=== PATIENT | female | born 1990 | race Caucasian/White ===

== ENCOUNTER 2017-04-10 16:37 | Emergency (ER) | payer MEDICAID ==
[~2017-04-10] VITALS: Ht 167.6 cm; Wt 81.6 kg
[~2017-04-10 16:37] MED LIST: IBUPROFEN600 MG ORAL; NKM
[2017-04-10] MEDS ORDERED: AUGMENTIN 875-1 EAC1 ORAL (17:14)
[2017-04-10] MEDS ORDERED: IBUPROFEN800 MG ORAL (17:15)
[2017-04-10 17:16] VITALS: BP 137/92
[2017-04-10 17:24] VITALS: BP 137/92
--- NOTE | 2017-04-10 17:32 | Emergency Room Report ---
History of Present Illness General Chief Complaint: Sore Throat Source: Patient Present Illness HPI [id number] presents with one day of "white stuff on my tonsills." First noticed this morning. Only minor pain. Denies fever/chills, URI symptoms, cough, rhinorrhea. Allergies: Coded Allergies: No Known Allergies (Unverified , 08/05/16) Patient History Past Medical History: none Past Surgical History: none Pertinent Family History: none Social History: Denies: alcohol use, drug use, smoking Last Menstrual Period: 02/28/17 Now: No Immunizations: UTD Reviewed Nursing Documentation: PMH: Agreed, PSxH: Agreed Nursing Documentation-PMH Past Medical History: No Stated History Review of Systems All Other Systems: negative except mentioned in HPI Physical Exam Vital Signs Date Time Temp Pulse Resp B/P Pulse Ox O2 Delivery O2 Flow Rate FiO2 04/10/17 16:40 99.3 79 18 137/92 100 Room Air Sp02 EP Interpretation: reviewed, normal General Appearance: normal inspection, well appearing, no apparent distress, alert, GCS 15, non-toxic Head: normocephalic, atraumatic Eyes: bilateral eye EOMI, bilateral eye PERRL ENT: normal ENT inspection, hearing grossly normal, no angioedema, normal voice , pharyngeal erythema, tonsillar exudate Neck: normal inspection, full range of motion, supple, no bony tend Respiratory: normal inspection, lungs clear, normal breath sounds, no respiratory distress, no retraction, no wheezing Cardiovascular #1: regular rate, rhythm, no edema Gastrointestinal: normal inspection, normal bowel sounds, non tender, soft, no guarding, no hernia Genitourinary: no CVA tenderness Musculoskeletal: normal inspection, back normal, normal range of motion, Shi' s Sign negative Neurologic: normal inspection, alert, oriented x3, responsive, 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, motor strength/tone normal, speech normal Psychiatric: normal inspection, judgement/insight normal, mood/affect normal Skin: normal inspection, normal color, no rash Medical Decision Making Diagnostic Impression: Primary Impression: Sore throat ER Course Pharyngitis c/w sore strep - Exudates, erythema - Decadron given in ED Rx Augemtnin, Motrin PMD followup Last Vital Signs Date Time Temp Pulse Resp B/P Pulse Ox O2 Delivery O2 Flow Rate FiO2 04/10/17 17:24 99.3 78 18 137/92 100 Room Air Status: improved Disposition: HOME, SELF-CARE Condition: Improved Scripts Ibuprofen* (MOTRIN*) 800 Mg Tablet 800 MG ORAL THREE TIMES A DAY for 7 Days, #30 TAB 0 Refills Prov: ANA BECKMAN M.D. 04/10/17 Amoxicillin/Potassium Clav 875-125* (AUGMENTIN 875-125 TABLET*) 1 Each Tablet 1 TAB ORAL TWICE A DAY for 7 Days, #14 TAB Prov: ANA BECKMAN M.D. 04/10/17 Referrals: ROJELIO LAWS,REFERRING (PCP) Patient Instructions: Pharyngitis, [id number] Additional Instructions: - Take ALL antibiotics - Take motrin every 8 hours as needed for pain ANA BECKMAN M.D. Apr 10, 2017 17:32
== END 2017-04-10 17:25 | disposition home or self-care (01) ==
LOC: EMR 17:00
DX: R07.0 Pain in throat (principal)
CPT/HCPCS: 99284; J8540

== ENCOUNTER 2019-07-01 18:37 | Emergency (ER) | payer MEDICAID ==
[~2019-07-01] VITALS: Ht 167.6 cm; Wt 127.0 kg
[~2019-07-01 18:37] MED LIST changes: +AUGMENTIN 875-1 EAC1 ORAL; +IBUPROFEN800 MG ORAL
--- NOTE | 2019-07-01 18:55 | NUR ---
ED Nurse Note: Pt came in due to bodyaches with chills and diarrhea all day. Pt also c/o N/V after eating at [employer] [employer]. AO x4, ambulatory. Skin is warm and dry.
--- NOTE | 2019-07-01 19:05 | NUR ---
HAND-OFF: Report given to Alina DÍAZ.
[2019-07-01] MEDS ORDERED: Ketorolac 30mg Inj IV ONE (19:15)
[2019-07-01 19:46] LABS: HEMATOCRIT 46.4 % (37.0-47.0); HEMOGLOBIN 14.6 G/DL (12.0-16.0); MEAN CORPUSCULAR VOLUME 81 FL (80-99); PLATELET COUNT 237 K/UL (150-450); RED BLOOD COUNT 5.74 M/UL (4.20-5.40); RED CELL DISTRIBUTION WIDTH 12.2 % (11.6-14.8); WHITE BLOOD COUNT 9.3 K/UL (4.8-10.8)
[2019-07-01 19:49] LABS: APPEARANCE,URINE CLEAR; BILIRUBIN, URINE NEGATIVE (NEGATIVE); GLUCOSE, URINE (UA) NEGATIVE (NEGATIVE); KETONES,URINE 1+ (NEGATIVE); LEUKOCYTE ESTERASE ,URINE 1+ (NEGATIVE); NITRITE,URINE NEGATIVE (NEGATIVE); PH,URINE 5 (4.5-8.0); PROTEIN,URINE NEGATIVE (NEGATIVE); UROBILINOGEN,URINE NORMAL MG/DL (0.0-1.0)
[2019-07-01 19:52] LABS: COLOR,URINE YELLOW
[2019-07-01 20:01] LABS: ANION GAP 8 mmol/L (5-15); BLOOD UREA NITROGEN 9 mg/dL (7-18); CALCIUM 8.8 MG/DL (8.5-10.1); CARBON DIOXIDE 28 MMOL/L (21-32); CHLORIDE 102 MMOL/L (98-107); CREATININE 0.8 MG/DL (0.55-1.30); POTASSIUM 4.9 MMOL/L (3.5-5.1); SODIUM 138 MMOL/L (136-145)
[2019-07-01 20:05] LABS: ALANINE AMINOTRANSFERASE 24 U/L (12-78); ALBUMIN 3.6 G/DL (3.4-5.0); ALBUMIN/GLOBULIN RATIO 0.8 (1.0-2.7); ALKALINE PHOSPHATASE 63 U/L (46-116); ASPARTATE AMINO TRANSFERASE 40 U/L (15-37); BILIRUBIN,TOTAL 0.6 MG/DL (0.2-1.0)
--- NOTE | 2019-07-01 20:44 | Emergency Room Report ---
History of Present Illness General Chief Complaint: Flu Like Symptoms Source: Patient Present Illness HPI 29-year-old female with history of polycystic ovarian syndrome with removal of her ovaries here complaining of 1 day of abdominal pain as well as multiple bouts of nonbloody diarrhea and nonbloody emesis. Patient reports that her symptoms started after she ate at [employer]. Reports that the abdominal pain has resolved today. Denies fever and chills, chest pain, shortness of breath, palpitation, cough and congestion and all the URI symptoms. Has been able to drink minimal amount of water however no food today. Denies any recent travel or sick contact. Denies dizziness and headache. Denies urinary symptoms such as urinary frequency or painful urination. Patient does not get any menses due to removal of her ovaries. Allergies: Coded Allergies: No Known Allergies (Unverified , 08/05/16) Patient History Past Medical History: see triage record Past Surgical History: unable to obtain Pertinent Family History: none Last Menstrual Period: none Now: No Immunizations: UTD Reviewed Nursing Documentation: PMH: Agreed; PSxH: Agreed Nursing Documentation-PMH Past Medical History: No Stated History Review of Systems All Other Systems: negative except mentioned in HPI Physical Exam Vital Signs Date Time Temp Pulse Resp B/P (MAP) Pulse Ox O2 Delivery O2 Flow Rate FiO2 07/01/19 18:45 100.4 109 20 145/97 (113) 98 Room Air Sp02 EP Interpretation: reviewed, normal General Appearance: no apparent distress, alert, GCS 15, non-toxic Head: normocephalic, atraumatic Eyes: bilateral eye normal inspection, bilateral eye PERRL ENT: hearing grossly normal, normal pharynx, no angioedema, normal voice Neck: full range of motion, supple/symm/no masses Respiratory: chest non-tender, lungs clear, normal breath sounds, no rhonchi, no wheezing, speaking full sentences Cardiovascular #1: regular rate, rhythm, no edema, no murmur, normal capillary refill Gastrointestinal: normal bowel sounds, non tender, soft, non-distended, no guarding, no rebound, other - Negative McBurney's and Rovsing Rectal: deferred Genitourinary: normal inspection, no CVA tenderness Musculoskeletal: back normal, gait/station normal, normal range of motion, non- tender Neurologic: alert, oriented x3, responsive, motor strength/tone normal, sensory intact, speech normal Psychiatric: judgement/insight normal, memory normal, mood/affect normal, no suicidal/homicidal ideation Skin: no rash Lymphatic: no adenopathy Medical Decision Making WONG Attestation Diagnosis and treatment plans were reviewed and discussed with my supervising physician Dr. Abdi Diagnostic Impression: Primary Impression: Gastroenteritis ER Course 29-year-old female with history of polycystic ovarian syndrome with removal of her ovaries here complaining of 1 day of abdominal pain as well as multiple bouts of nonbloody diarrhea and nonbloody emesis. Patient reports that her symptoms started after she ate at [employer] [place]. Reports that the abdominal pain has resolved today. Denies fever and chills, chest pain, shortness of breath, palpitation, cough and congestion and all the URI symptoms. Has been able to drink minimal amount of water however no food today. Denies any recent travel or sick contact. Denies dizziness and headache. Denies urinary symptoms such as urinary frequency or painful urination. Patient does not get any menses due to removal of her ovaries. Ddx considered but are not limited to: appendicitis, gastroenteritis, cholecystitis, UTI Vital signs: are WNL, pt. is afebrile H&PE are most consistent with: Gastroenteritis ORDERS: CBC, CMP, UA, urine test, tox screen ED INTERVENTIONS: NS bolus, Pepcid, Toradol, zofran DISCHARGE: At this time pt. is stable for d/c to home. Will provide printed patient care instructions, and any necessary prescriptions. Care plan and follow up instructions have been discussed with the patient prior to discharge. keep BRAT diet. Increase oral hydration follow-up with your primary care provider worsening symptoms return to the emergency room at this time no abdominal CT scan or ultrasound needed as symptoms are secondary due to food consumption and gastroenteritis patient not guarding and no rebound noted Last Vital Signs Date Time Temp Pulse Resp B/P (MAP) Pulse Ox O2 Delivery O2 Flow Rate FiO2 07/01/19 18:55 105 16 Room Air 07/01/19 18:45 100.4 145/97 (113) 98 Disposition: HOME, SELF-CARE Condition: Stable Scripts Omeprazole (OMEPRAZOLE) 20 Mg Tablet. 20 MG ORAL DAILY, #30 TAB Prov: Ruperto Blancas 07/01/19 Ondansetron (Zofran) 4 Mg Tablet 4 MG ORAL Q6H PRN for Nausea & Vomiting, #12 TAB Prov: Ruperto Blancas 07/01/19 Patient Instructions: Viral Gastroenteritis, Adult, [id number] Additional Instructions: Increase oral hydration follow-up with your primary care provider if worsening symptoms return to the emergency room Ruperto Blancas Jul 01, 2019 20:44
[2019-07-01 20:45] VITALS: BP 145/97
[2019-07-01] MEDS ORDERED: OMEPRAZOLE20 M3 ORAL (20:45)
[2019-07-01] MEDS ORDERED: ZOFRAN4 M1 ORAL (20:45)
--- NOTE | 2019-07-01 20:45 | NUR ---
ER DISCHARGE NOTE: Patient is cleared to be discharged per ERMD, pt is aox4, on room air, with stable vital signs. pt was given dc and prescription instructions, pt was able to verbalize understanding, pt id band removed. pt is able to ambulate with steady gait. pt took all belongings.
== END 2019-07-01 20:45 | disposition home or self-care (01) ==
LOC: EMR 19:10
DX: K52.9 Noninfective gastroenteritis and colitis, unspecified (principal)
CPT/HCPCS: 36415; 80053; 80307; 81001; 81025; 85007; 85025; 96361; 96374; 96375; J1885; J2405; S0028; Z7502; 99284

== ENCOUNTER 2020-01-02 15:31 | Emergency (ER) | payer MEDICAID ==
[~2020-01-02] VITALS: Ht 165.1 cm; Wt 152.4 kg
[~2020-01-02 15:31] MED LIST changes: +OMEPRAZOLE20 M3 ORAL; +ZOFRAN4 M1 ORAL
[2020-01-02 16:25] LABS: APPEARANCE,URINE CLEAR; BILIRUBIN, URINE NEGATIVE (NEGATIVE); COLOR,URINE PALE YELLOW; GLUCOSE, URINE (UA) NEGATIVE (NEGATIVE); KETONES,URINE NEGATIVE (NEGATIVE); LEUKOCYTE ESTERASE ,URINE NEGATIVE (NEGATIVE); NITRITE,URINE NEGATIVE (NEGATIVE); PH,URINE 8 (4.5-8.0); PROTEIN,URINE NEGATIVE (NEGATIVE); UROBILINOGEN,URINE 1 MG/DL (0.0-1.0)
--- NOTE | 2020-01-02 16:30 | NUR ---
ED Nurse Note: Pt walked into ED w/ c/o abdominal pain L abdomen 7/10 since last night. Pt has nasuea, no vomiting. Pt states no prior abdominal hx. Pt is obese. Pt is alert and orientedx4, ambulatory. Her last BM was yesterday morning.
[2020-01-02 16:47] VITALS: BP 135/87
--- NOTE | 2020-01-02 16:51 | Emergency Room Report ---
History of Present Illness General Chief Complaint: Abdominal Pain Source: Patient Present Illness HPI 29-year-old female who is morbidly obese here complaining of urinary frequency and urgency and suprapubic pain as well as acid reflux and epigastric pain x2 days. Denies recent travel, fever and chills, cough and congestion. Denies flank pain, nausea vomiting. No guarding or tenderness noted in the abdomen. Reports that she eats a lot of spicy and acidic food. Complains of acid reflux. Denies at this time. Has not taken medication for symptom relief. Denies any vaginal discharge. COVID-19 risk:Contact w/high r: No COVID-19 risk:Travel to affect: No Has patient experienced roldan: No Allergies: Coded Allergies: No Known Allergies (Unverified , 08/05/16) Patient History Past Medical History: see triage record Past Surgical History: none Pertinent Family History: none Now: No Immunizations: UTD Reviewed Nursing Documentation: PMH: Agreed; PSxH: Agreed Nursing Documentation-PMH Past Medical History: No Stated History Review of Systems All Other Systems: negative except mentioned in HPI Physical Exam Vital Signs Date Time Temp Pulse Resp B/P (MAP) Pulse Ox O2 Delivery O2 Flow Rate FiO2 01/02/20 15:45 98.6 72 16 130/80 (97) 98 Room Air Sp02 EP Interpretation: reviewed, normal General Appearance: no apparent distress, alert, GCS 15, non-toxic, obese Head: normocephalic, atraumatic Eyes: bilateral eye normal inspection, bilateral eye PERRL ENT: hearing grossly normal, normal pharynx, no angioedema, normal voice Neck: full range of motion, supple/symm/no masses Respiratory: chest non-tender, lungs clear, normal breath sounds, no rhonchi, no wheezing, speaking full sentences Cardiovascular #1: regular rate, rhythm, no edema, no murmur Gastrointestinal: normal bowel sounds, non tender, soft, non-distended, no guarding, no rebound Rectal: deferred Genitourinary: no CVA tenderness Musculoskeletal: back normal Neurologic: alert, motor strength/tone normal, oriented x3, sensory intact, responsive, speech normal Psychiatric: judgement/insight normal, memory normal, mood/affect normal, no suicidal/homicidal ideation Skin: no rash Lymphatic: no adenopathy Medical Decision Making PA Attestation All my diagnosis and treatment plans were reviewed ad discussed with my supervising physician Dr. Arteaga Diagnostic Impression: Primary Impression: UTI (urinary tract infection) Additional Impression: Gastritis ER Course 29-year-old female who is morbidly obese here complaining of urinary frequency and urgency and suprapubic pain as well as acid reflux and epigastric pain x2 days. Denies recent travel, fever and chills, cough and congestion. Denies flank pain, nausea vomiting. No guarding or tenderness noted in the abdomen. Reports that she eats a lot of spicy and acidic food. Complains of acid reflux. Denies at this time. Has not taken medication for symptom relief. Denies any vaginal discharge. Ddx considered but are not limited to: UTI, pyelonephritis, urinary incontinence , prolapsed bladder Vital signs: are WNL, pt. is afebrile H&PE are most consistent with: UTI, gastritis ORDERS: UA, urine cx, urine , Macrobid, omeprazole, Zofran ED INTERVENTIONS: None required at this time. DISCHARGE: At this time pt. is stable for d/c to home. Will provide printed patient care instructions, and any necessary prescriptions. Care plan and follow up instructions have been discussed with the patient prior to discharge. Patient to follow-up primary care provider, ultrasound and CT scan may be needed if symptoms continue at this time no imaging needed as patient is not guarding and nontender to palpation also avoid eating spicy food. If worsening symptom return to emergency room Last Vital Signs Date Time Temp Pulse Resp B/P (MAP) Pulse Ox O2 Delivery O2 Flow Rate FiO2 01/02/20 15:45 98.6 72 16 130/80 (97) 98 Room Air Disposition: HOME, SELF-CARE Condition: Stable Scripts Omeprazole (OMEPRAZOLE) 20 Mg Tablet. 20 MG ORAL DAILY, #30 TAB Prov: Ruperto Blancas 01/02/20 Ondansetron (Zofran) 4 Mg Tablet 4 MG ORAL Q6H PRN for Nausea & Vomiting, #14 TAB Prov: Ruperto Blancas 01/02/20 Nitrofurantoin Monohyd/M-Cryst* (MACROBID 100 MG*) 100 Mg Capsule 100 MG ORAL EVERY 12 HOURS for 7 Days, #14 CAP Prov: Ruperto Blancas 01/02/20 Patient Instructions: Gastritis, Adult, Urinary Tract Infection, [id number] Additional Instructions: Increase oral hydration, take medication as directed, avoid eating spicy acidic food, if worsening symptoms return to the emergency room Ruperto Blancas Jan 02, 2020 16:51
[2020-01-02] MEDS ORDERED: ZOFRAN4 M1 ORAL (16:55)
[2020-01-02] MEDS ORDERED: OMEPRAZOLE20 M3 ORAL (16:55)
[2020-01-02] MEDS ORDERED: NITROFURANTOIN100 M2 ORAL (16:55)
[2020-01-02 17:24] VITALS: BP 123/88
== END 2020-01-02 17:24 | disposition home or self-care (01) ==
LOC: EMR 16:50
DX: N39.0 Urinary tract infection, site not specified (principal); K29.70 Gastritis, unspecified, without bleeding; E66.9 Obesity, unspecified
CPT/HCPCS: 81001; 81025; Z7502; 99283